=== PATIENT | female | born 1980 | race Caucasian/White ===

== ENCOUNTER 2023-02-23 14:23 | Outpatient (CLI) | payer BC, SELFPAY ==
[2023-02-23 18:37] LABS: Hemoglobin 13.3 g/dL (12.0-15.0); Mean Corpuscular HGB Conc 32.4 g/dl (32-36); Mean Corpuscular Hemoglobin 28.7 pg (26-34); Mean Corpuscular Volume 88.4 fl (80-100); Mean Platelet Volume 10.7 fl (7.4-10.4); Platelet Count Result 422 k/mm3 (150-375); Red Blood Count 4.64 M/mm3 (4.2-5.4); Red Cell Distribution Width 13.3 % (11.5-14.5); White Blood Count 9.2 K/mm3 (4.5-10.0)
[2023-02-23 19:36] LABS: Alanine Aminotransferase 30 U/L (6-35); Albumin Level 4.5 g/dL (3.5-5.1); Alkaline Phosphatase 72 U/L (38-126); Anion Gap 10 mmol/L (8-16); Aspartate Amino Transferase 60 U/L (14-36); Bilirubin,Total 0.9 mg/dL (0.2-1.3); Blood Urea Nitrogen 12 mg/dL (7-17); Calcium 8.9 mg/dL (8.4-10.2); Carbon Dioxide 25 mmol/L (22-30); Chloride 103 mmol/L (98-107); Cholesterol 199 mg/dL (0-200); Estimated Glomerular Filt Rate > 60; Glucose 80 mg/dL (65-110); HDL Direct 56 mg/dL; Potassium 3.8 mmol/L (3.4-5.0); Sodium 138 mmol/L (137-145); Triglycerides 112 mg/dL (<150)
[2023-02-23 19:37] LABS: Iron 100 ug/dL (37-170)
[2023-02-23 19:47] LABS: LDL Cholesterol Direct 102 mg/dL
[2023-02-23 19:52] LABS: Thyroid Stimulating Hormone 0.361 uIU/mL (0.465-4.680)
[2023-02-23 19:53] LABS: Free T4 Free Thyroxine 1.47 ng/mL (0.78-2.19)
[2023-02-23 20:01] LABS: Percent Iron Saturation 33 % (20-50)
[2023-02-23 20:38] LABS: Hemoglobin A1C 4.7 % (<5.7)
[2023-02-26 08:25] LABS: FSH 8.9 mIU/mL (***); LH 2.7 mIU/mL (***)
[2023-02-28 14:32] LABS: Estrogen 141 pg/mL
[2023-03-02 21:57] LABS: Estradiol, Ultrasensitive 77 pg/mL
== END 2023-02-23 14:24 | disposition home or self-care (01) ==
PROVIDERS: PCP Nurse Practitioner Adult Health; Visit Provider Nurse Practitioner Adult Health
DX: Z13.9 Encounter for screening, unspecified (principal); R68.82 Decreased libido; Z86.2 Personal history of diseases of the blood and blood-forming organs and certain disorders involving the immune mechanism; E66.9 Obesity, unspecified; Z90.711 Acquired absence of uterus with remaining cervical stump; K92.1 Melena
CPT/HCPCS: 36415; 80053; 80061; 82670; 82672; 83001; 83002; 83036; 83540; 83550; 84439; 84443; 85027

== ENCOUNTER 2023-02-24 14:17 | Outpatient (CLI) | payer BC, SELFPAY ==
[2023-02-24 15:33] LABS: IFOB Positive Control Positive; Immunochemical Fecal Occult Bl Negative (N)
== END 2023-02-24 14:18 | disposition home or self-care (01) ==
PROVIDERS: PCP Nurse Practitioner Adult Health; Visit Provider Nurse Practitioner Adult Health
DX: K92.1 Melena (principal)
CPT/HCPCS: 82274

== ENCOUNTER → 2023-02-27 14:42 | Outpatient (CLI) | payer BC, SELFPAY ==
--- NOTE | ~2023-02-27 | US_ITS ---
EXAMINATION: US thyroid DATE: 02/27/2023 14:58 INDICATION: Nontoxic single thyroid nodule. TECHNIQUE: Multiple ultrasound images of the thyroid were obtained. COMPARISON: None. FINDINGS: The right thyroid lobe measures 5.1 x 2.1 x 1.8 cm. The left thyroid lobe measures 4.6 x 1.9 x 1.4 c m. In the right thyroid lobe, there is an 11 mm solid, hypoechoic, wider than tall nodule with lobul ated margin without echogenic foci (TI-RADS TR4). In the right thyroid lobe, there is a 5 mm solid, h ypoechoic, wider than tall nodule with smooth margin with punctate echogenic foci (TR5). In the right thyroid lobe, there is a 5 mm solid, hypoechoic, wider than tall nodule with smooth margin without e chogenic foci (TR4). IMPRESSION: 1. Small thyroid nodules. Thyroid ultrasound is recommended in one year. Reviewed, dictated and finalized at location A.
== END ==
PROVIDERS: PCP Nurse Practitioner Adult Health; Visit Provider Nurse Practitioner Adult Health
DX: E04.2 Nontoxic multinodular goiter (principal)
CPT/HCPCS: 76536